=== PATIENT | female | born 1955 ===

== ENCOUNTER 2023-10-14 06:26 | Observation (INO) ==
[2023-10-14] MEDS ORDERED: Tranexamic Acid 1 GM/100ML BAG 2,000 MG/200 ML BAG IV ONE (07:00)
[2023-10-14] MEDS ORDERED: ceFAZolin 2 GM PREMIX 2 GM/50 ML BAG ONE (07:00)
[2023-10-14 07:14] LABS: Rapid COVID-19 Molecular Undetected (Undetected)
[2023-10-14] MEDS ORDERED: Midazolam 2 mg/2 ml VIAL 1 mg/ml 2 ml VIAL (2 mg) ONE ×2 (09:07→09:35)
[2023-10-14] MEDS ORDERED: ROPIVACAINE 5 MG/ML 30 ML BTL (0.5%) ONE ×2 (09:07→09:11)
[2023-10-14] MEDS ORDERED: Lidocaine 2% PF 5 ML VIAL ONE (09:33)
[2023-10-14] MEDS ORDERED: Propofol 10 MG/ML 20 ML BTL ONE (09:33)
[2023-10-14] MEDS ORDERED: Naloxone 0.4 mg VIAL 0.4 mg/ml 1 ml VIAL IV PRN (09:52)
[2023-10-14] MEDS ORDERED: Acetaminophen IV 1 GM/100ML 1,000 MG/100 ML BAG IV PRN (09:52)
[2023-10-14] MEDS ORDERED: fentaNYL 100 mcg/2 ml 50 MCG/ML VIAL IV PRN (09:52)
[2023-10-14] MEDS ORDERED: Ondansetron 4 mg VIAL 2 MG/ML 2 ml VIAL IV PRN ×2 (09:52→13:01)
[2023-10-14] MEDS ORDERED: HYDROmorphone 1 MG/1 ML SYRINGE IV PRN (09:52)
[2023-10-14] MEDS ORDERED: Bupivacaine-MPF SPINAL 7.5 MG/ML - 2ML AMP ONE (10:11)
[2023-10-14] MEDS ORDERED: Rocuronium 50 mg VIAL 10 mg/ml 5 ml VIAL (50 mg) ONE (10:26)
[2023-10-14] MEDS ORDERED: Succinylcholine 200 mg VIAL 20 mg/ml 10 ml VIAL (200 mg) ONE (10:35)
[2023-10-14] MEDS ORDERED: Dexamethasone IV 4 MG/ML VIAL 1 ml VIAL ONE (11:03)
[2023-10-14] MEDS ORDERED: Ondansetron 4 mg VIAL 2 MG/ML 2 ml VIAL ONE (11:03)
[2023-10-14] MEDS ORDERED: Ondansetron ODT 4 mg TAB 4 MG TAB PO PRN (13:01)
[2023-10-14] MEDS ORDERED: Magnesium Hydroxide LIQ 30 ML UDC PO PRN (13:01)
[2023-10-14] MEDS ORDERED: Lactulose 30 ml UDC PO PRN (13:01)
[2023-10-14] MEDS: Lactated Ringers 1000 ml BAG 1,000 ML IV SCH (15:32)
[2023-10-14] MEDS: Morphine 2 MG/ML SYRINGE IV PRN (21:11)
[2023-10-14] MEDS: ceFAZolin 1 GM ADVAN 1 GM in NS 0.9% 50 ML 50 ML IVPB SCH (21:22)
[2023-10-14] MEDS: Magnesium Hydroxide LIQ 30 ML UDC PO SCH (21:27)
[2023-10-15 06:23] LABS: Hemoglobin 10.7 g/dL (11.5-14.3); Mean Platelet Volume 7.6 fL (7.5-11.2); Platelet Count 185 10^3/uL (150-450)
[2023-10-15 06:38] LABS: Creatinine, Serum 0.64 mg/dL (0.51-0.95); Potassium 4.2 mmol/L (3.5-5.0); eGFR CKD-EPI 97.4 (>60)
[2023-10-15] MEDS: Vitamin THERAPEUTIC TAB PO SCH (08:31)
[2023-10-15 14:47] VITALS: BP 129/72
== END 2023-10-15 14:57 | disposition home or self-care (01) ==
LOC: OR 06:26 → SSU 06:26
PROVIDERS: ADMIT Orthopaedic Surgery Adult Reconstructive Orthopaedic Surgery; ATTEND Orthopaedic Surgery Adult Reconstructive Orthopaedic Surgery